=== PATIENT | female | born 1990 | race Caucasian/White ===

== ENCOUNTER 2016-07-27 20:22 | Emergency (ER) | payer BC, OTHER ==
[~2016-07-27 20:22] MED LIST: DEPO SHOT; DEPO-PROVER150 MG/ML INJ; FLEXERIL10 MG PO; IBUPROFEN800 MG PO; MOBIC PO; NAPROSYN500 MG PO; OMEPRAZOLE PO; OMEPRAZOLE20 M2 PO; SKELAXIN PO
[2016-07-27 21:20] LABS: URINE APPEARANCE CLOUDY; URINE BILIRUBIN NEG (NEG); URINE BLOOD NEG (NEG); URINE COLOR YELLOW; URINE GLUCOSE NEG (NEG); URINE KETONE TRACE (NEG); URINE LEUKOCYTE ESTERASE 1+ (NEG); URINE NITRATE NEG (NEG); URINE PH 5.5 (5-8); URINE PROTEIN NEG (NEG); URINE SPECIFIC GRAVITY 1.019 (1.003-1.035)
[2016-07-27 21:21] LABS: CULTURE INDICATED? YES; URINE BACTERIA AUWI 2+ (NEGATIVE); URINE SQUAMOUS EPITHELIAL CELL OCC /[HPF]
== END 2016-07-27 22:20 | disposition home or self-care (01) ==
LOC: CFTX 20:22 → CED 20:22 → CFTX 20:46
PROVIDERS: Nurse Practitioner Family
DX: N39.0 Urinary tract infection, site not specified (principal); K21.9 Gastro-esophageal reflux disease without esophagitis; Z90.49 Acquired absence of other specified parts of digestive tract
CPT/HCPCS: 81003; 84703; 87086; 99283